=== PATIENT | female | born 1945 | race Caucasian/White ===

== ENCOUNTER 2019-07-09 10:31 | Outpatient (RCR) | payer MEDICARE, SELFPAY ==
[2019-04-28 12:58] LABS: INR 2.7; Prothrombin Time 27.8 Seconds (11.1-14.7)
[2019-05-26 11:06] LABS: INR 2.8; Prothrombin Time 28.9 Seconds (11.1-14.7)
[2019-06-25 11:28] LABS: INR 3.2; Prothrombin Time 32.5 Seconds (11.1-14.7)
[2019-07-09 10:55] LABS: INR 2.1; Prothrombin Time 23.5 Seconds (11.1-14.7)
== END 2019-07-27 23:59 | disposition home or self-care (01) ==
LOC: ANHLAB 10:31
PROVIDERS: PCP Family Medicine; Visit Provider Internal Medicine Cardiovascular Disease
DX: Z51.81 Encounter for therapeutic drug level monitoring (principal); I48.0 Paroxysmal atrial fibrillation; Z79.01 Long term (current) use of anticoagulants
CPT/HCPCS: 36415; 85610

== ENCOUNTER 2019-10-28 10:47 | Outpatient (RCR) | payer MEDICARE, SELFPAY ==
[2019-08-11 10:48] LABS: INR 2.5; Prothrombin Time 26.4 Seconds (11.1-14.7)
[2019-10-28 11:34] LABS: INR 2.6; Prothrombin Time 27.4 Seconds (11.1-14.7)
== END 2019-11-09 23:59 | disposition home or self-care (01) ==
LOC: ANHLAB 10:47
PROVIDERS: PCP Family Medicine; Visit Provider Internal Medicine Cardiovascular Disease
DX: Z51.81 Encounter for therapeutic drug level monitoring (principal); I48.0 Paroxysmal atrial fibrillation; Z79.01 Long term (current) use of anticoagulants
CPT/HCPCS: 36415; 85610

== ENCOUNTER 2020-02-10 10:54 | Outpatient (RCR) | payer MEDICARE, SELFPAY ==
[2019-12-07 11:46] LABS: INR 2.7; Prothrombin Time 28.2 Seconds (11.1-14.7)
[2020-01-11 11:45] LABS: INR 3.1; Prothrombin Time 31.1 Seconds (11.1-14.7)
[2020-02-10 11:35] LABS: INR 3.1; Prothrombin Time 31.2 Seconds (11.1-14.7)
== END 2020-03-06 23:59 | disposition home or self-care (01) ==
LOC: ANHLAB 10:54
PROVIDERS: PCP Family Medicine; Visit Provider Internal Medicine Cardiovascular Disease
DX: Z51.81 Encounter for therapeutic drug level monitoring (principal); I48.0 Paroxysmal atrial fibrillation; Z79.01 Long term (current) use of anticoagulants
CPT/HCPCS: 36415; 85610

== ENCOUNTER 2020-03-15 09:10 | Outpatient (CLI) | payer MEDICARE, SELFPAY ==
[2020-03-15 09:50] LABS: Basophils Absolute Auto 0.1 K/mm3 (0.0-0.1); Basophils Percent Auto 1.2 % (0.2-1.2); Eosinophils Absolute Auto 0.2 K/mm3 (0-0.3); Eosinophils Percent Auto 2.7 % (0-4.4); Hematocrit 39.4 % (37.0-47.0); Hemoglobin 12.4 g/dL (12.0-15.0); Immature Granulocyte Absolute 0.02 K/mm3 (0.00-0.031); Immature Granulocyte Percent A 0.3 % (0-0.5); Lymphocytes Absolute Auto 1.03 K/mm3 (0.9-3.2); Lymphocytes Percent Auto 17.2 % (18.3-44.2); Mean Corpuscular HGB Conc 31.5 g/dl (32-36); Mean Corpuscular Hemoglobin 30.1 pg (26-34); Mean Corpuscular Volume 95.6 fl (80-100); Mean Platelet Volume 10.2 fl (7.4-10.4); Monocytes Absolute Auto 0.7 K/mm3 (0.1-0.6); Monocytes Percent Auto 11.2 % (2.6-8.5); Neutrophils Percent Auto 67.4 % (45.5-73.1); Platelet Count Result 301 k/mm3 (150-375); Red Blood Count 4.12 M/mm3 (4.2-5.4)
[2020-03-15 09:54] LABS: Add Urine Microscopic? YES; Appearance Urine Clear (Clear); Bilirubin Urine Negative (Negative); Blood Urine 1+ (Negative); Color Urine Yellow (Yellow); Glucose Urine UA Negative (Negative); Ketones Urine Negative (Negative); Leukocyte Esterase Ur Negative LEU/UL (NEGATIVE); Mucus Urine Rare /lpf; Nitrate Urine Negative (Negative); Protein Urine 1+ mg/dL (Negative); Specific Grav Ur 1.016 (1.001-1.035); Squamous Epithelial Cell Urine Rare /hpf (Few); Transitional Epi Cells Urine Rare /hpf (None Seen); Urobilinogen Urine Negative mg/dL (<2.0); WBC Urine 0-3 /hpf (0-3)
[2020-03-15 10:04] LABS: Alanine Aminotransferase 20 U/L (4-35); Albumin Level 3.9 g/dL (3.5-5.1); Alkaline Phosphatase 111 U/L (38-126); Anion Gap 6 mmol/L (8-16); Aspartate Amino Transferase 27 U/L (14-36); Blood Urea Nitrogen 11 mg/dL (7-17); Carbon Dioxide 29 mmol/L (22-30); Chloride 108 mmol/L (98-107); Cholesterol 137 mg/dL (0-200); Estimated Glomerular Filt Rate > 60; Glucose 102 mg/dL (65-105); HDL Direct 40 mg/dL; Potassium 4.3 mmol/L (3.4-5.0); Sodium 143 mmol/L (137-145); Triglycerides 139 mg/dL (<150)
[2020-03-15 10:14] LABS: LDL Cholesterol Direct 62 mg/dL
== END 2020-03-15 09:11 | disposition home or self-care (01) ==
PROVIDERS: PCP Family Medicine; Visit Provider Physician Assistant
DX: E78.5 Hyperlipidemia, unspecified (principal); R26.89 Other abnormalities of gait and mobility; I48.20 Chronic atrial fibrillation, unspecified; I10 Essential (primary) hypertension; I69.30 Unspecified sequelae of cerebral infarction
CPT/HCPCS: 36415; 80053; 80061; 81001; 84443; 85025; 85610

== ENCOUNTER 2020-03-29 12:56 | Outpatient (CLI) | payer MEDICARE, SELFPAY ==
--- NOTE | ~2020-03-29 | DEXA_ITS ---
Bone Density Report Name: Nikki Perez Age: 74 Sex: Female Ethnicity: White Date of : 1945 Indication: postmenopausal; Referring Provider: MARLIN CHINO Study: Bone densitometry was performed. Exam Date: March 29, 2020 Accession number: [id number] Bone Density: Region BMD T-score Z-score Classification AP Spine (L1-L4) 0.666 -3.5 -1.0 Osteoporosis Femoral Neck (Left) 0.399 -4.1 -1.9 Osteoporosis Total Hip (Left) 0.551 -3.2 -1.4 Osteoporosis Total Hip Bilateral Avg 0.568 -3.1 -1.3 Osteoporosis Femoral Neck (Right) 0.424 -3.8 -1.7 Osteoporosis Total Hip (Right) 0.585 -2.9 -1.1 Osteoporosis World Health Organization criteria for BMD impression classify patients as: Normal (T-score at or above -1.0), Osteopenia (T-score between -1.0 and -2.5), or Osteoporosis (T-score at or below -2.5). 10-year Fracture Risk: FRAX not reported because: Some T-score for Spine Total or Hip Total or Femoral Neck at or below -2.5 Clinical Information Provided by Patient: Patient maximum height was 63 Menopause Age: 49 No regular weight bearing exercise Drinks caffeinated beverages Onset of menses at age 15 Number of children 2 Impression: The patient has osteoporosis, based on the Left Femoral Neck T-score. Discussion: INCREASED RISK OF FRACTURE. BONE DENSITY IS UNDESIRABLY LOW AT ONE OR MORE SKELETAL SITES, CONSISTENT WITH POSTMENOPAUSAL OSTEOPOROSIS. This patient's lowest T-score meets the World Health Organization's (WHO) criteria for osteoporosis at one or more sites (T-score -2.5 or below). In untreated patients, the risk of osteoporotic fracture increases approximately two-fold for each 1.0 SD decrease in T-score. Low bone density is not the only risk factor for fracture; also consider factors such as patient's age, frailty or poor health, risk of falling, risk of injury, previous osteoporotic fracture, family history of osteoporosis, cigarette smoking, low body weight, etc. Not everyone with low bone mineral density has osteoporosis; osteomalacia and other metabolic bone disorders should also be considered. Patients who have osteoporosis should be evaluated for specific diseases and conditions (secondary causes) that may cause or contribute to bone loss. The [place] Association of Clinical Endocrinologists (AACE) and National Osteoporosis Foundation (NOF) recommend pharmacologic intervention for all postmenopausal women whose T-score is in this range. The patient should follow a healthful lifestyle (good nutrition with adequate calcium and vitamin D, and appropriate weight-bearing exercise). Follow-Up: Consider a repeat BMD and Vertebral Fracture Assessment (VFA) exam in 2 years or sooner if medically necessary, to reassess this patient's status. Reported by: VIKY on 03/29/2020 1:22:00 PM.
== END 2020-03-29 12:57 | disposition home or self-care (01) ==
LOC: ANHIMG 12:58
PROVIDERS: PCP Family Medicine; Visit Provider Physician Assistant
DX: Z78.0 Asymptomatic menopausal state (principal); M81.0 Age-related osteoporosis without current pathological fracture
CPT/HCPCS: 77080

== ENCOUNTER 2020-05-10 11:51 | Outpatient (RCR) | payer MEDICARE, SELFPAY ==
[2020-03-15 10:03] LABS: INR 2.6; Prothrombin Time 27.2 Seconds (11.1-14.7)
[2020-04-15 11:27] LABS: INR 2.9; Prothrombin Time 29.5 Seconds (11.1-14.7)
[2020-05-10 12:47] LABS: INR 2.7; Prothrombin Time 29.1 Seconds (11.1-14.7)
== END 2020-06-13 23:59 | disposition home or self-care (01) ==
LOC: ANHLAB 11:51
PROVIDERS: PCP Family Medicine; Visit Provider Internal Medicine Cardiovascular Disease
DX: Z51.81 Encounter for therapeutic drug level monitoring (principal); I48.0 Paroxysmal atrial fibrillation; Z79.01 Long term (current) use of anticoagulants
CPT/HCPCS: 36415; 85610

== ENCOUNTER 2020-08-25 10:27 | Outpatient (RCR) | payer MEDICARE, SELFPAY ==
[2020-06-14 11:05] LABS: INR 2.7; Prothrombin Time 29.2 Seconds (11.1-14.7)
[2020-07-19 11:11] LABS: INR 3.2; Prothrombin Time 33.3 Seconds (11.1-14.7)
[2020-08-16 11:04] LABS: INR 3.8; Prothrombin Time 37.8 Seconds (11.1-14.7)
[2020-08-25 10:59] LABS: INR 3.1; Prothrombin Time 32.5 Seconds (11.1-14.7)
== END 2020-09-12 23:59 | disposition home or self-care (01) ==
LOC: ANHLAB 10:27
PROVIDERS: PCP Family Medicine; Visit Provider Internal Medicine Cardiovascular Disease
DX: Z51.81 Encounter for therapeutic drug level monitoring (principal); I48.0 Paroxysmal atrial fibrillation; I63.111 Cerebral infarction due to embolism of right vertebral artery; Z79.01 Long term (current) use of anticoagulants
CPT/HCPCS: 36415; 85610

== ENCOUNTER 2020-11-15 09:14 | Outpatient (CLI) | payer MEDICARE, SELFPAY ==
[2020-11-15 09:52] LABS: Hematocrit 39.7 % (37.0-47.0); Hemoglobin 12.4 g/dL (12.0-15.0); Mean Corpuscular HGB Conc 31.2 g/dl (32-36); Mean Corpuscular Hemoglobin 28.6 pg (26-34); Mean Corpuscular Volume 91.5 fl (80-100); Mean Platelet Volume 10.1 fl (7.4-10.4); Platelet Count Result 317 k/mm3 (150-375); Red Blood Count 4.34 M/mm3 (4.2-5.4); Red Cell Distribution Width 15.8 % (11.5-14.5); White Blood Count 6.9 K/mm3 (4.5-10.0)
[2020-11-15 09:56] LABS: Add Urine Microscopic? YES; Appearance Urine Clear (Clear); Bilirubin Urine Negative (Negative); Blood Urine 1+ (Negative); Color Urine Yellow (Yellow); Glucose Urine UA Negative (Negative); Ketones Urine Negative (Negative); Leukocyte Esterase Ur Negative LEU/UL (NEGATIVE); Mucus Urine Rare /lpf; Nitrate Urine Negative (Negative); Protein Urine Negative (Negative); RBC Urine 0-2 /hpf (0-2); Specific Grav Ur 1.013 (1.001-1.035); Squamous Epithelial Cell Urine Rare /hpf (Few); Urobilinogen Urine Negative mg/dL (<2.0); WBC Urine 0-3 /hpf (0-3)
[2020-11-15 10:04] LABS: Alanine Aminotransferase 19 U/L (4-35); Albumin Level 4.1 g/dL (3.5-5.1); Alkaline Phosphatase 119 U/L (38-126); Anion Gap 9 mmol/L (8-16); Aspartate Amino Transferase 31 U/L (14-36); Bilirubin,Total 1.2 mg/dL (0.2-1.3); Blood Urea Nitrogen 15 mg/dL (7-17); Calcium 9.3 mg/dL (8.4-10.2); Carbon Dioxide 26 mmol/L (22-30); Chloride 109 mmol/L (98-107); Cholesterol 139 mg/dL (0-200); Estimated Glomerular Filt Rate > 60; Glucose 105 mg/dL (65-105); HDL Direct 44 mg/dL; Potassium 4.3 mmol/L (3.4-5.0); Sodium 144 mmol/L (137-145); Triglycerides 126 mg/dL (<150)
[2020-11-15 10:16] LABS: LDL Cholesterol Direct 58 mg/dL
[2020-11-15 10:34] LABS: Thyroid Stimulating Hormone 0.816 uIU/mL (0.465-4.680)
== END 2020-11-15 09:15 | disposition home or self-care (01) ==
LOC: ANHLAB 09:22
PROVIDERS: PCP Family Medicine; Visit Provider Family Medicine
DX: E78.5 Hyperlipidemia, unspecified (principal); R26.89 Other abnormalities of gait and mobility; I10 Essential (primary) hypertension; Z00.00 Encounter for general adult medical examination without abnormal findings
CPT/HCPCS: 36415; 80053; 80061; 81001; 84443; 85027

== ENCOUNTER 2020-12-19 10:29 | Outpatient (RCR) | payer MEDICARE, SELFPAY ==
[2020-09-20 11:44] LABS: INR 2.8; Prothrombin Time 30.1 Seconds (11.1-14.7)
[2020-10-18 11:36] LABS: INR 3.1; Prothrombin Time 32.3 Seconds (11.1-14.7)
[2020-11-15 10:06] LABS: INR 2.5; Prothrombin Time 27.5 Seconds (11.1-14.7)
[2020-12-19 10:55] LABS: INR 2.8; Prothrombin Time 30.3 Seconds (11.1-14.7)
== END 2020-12-19 23:59 | disposition home or self-care (01) ==
LOC: ANHLAB 10:29
PROVIDERS: PCP Family Medicine; Visit Provider Internal Medicine Cardiovascular Disease
DX: Z51.81 Encounter for therapeutic drug level monitoring (principal); I48.0 Paroxysmal atrial fibrillation; I63.111 Cerebral infarction due to embolism of right vertebral artery; Z79.01 Long term (current) use of anticoagulants
CPT/HCPCS: 36415; 85610

== ENCOUNTER 2021-04-10 11:11 | Outpatient (RCR) | payer MEDICARE, SELFPAY ==
[2021-01-17 11:14] LABS: INR 2.9; Prothrombin Time 29.3 Seconds (11.1-14.7)
[2021-02-17 11:33] LABS: Prothrombin Time 30.6 Seconds (11.1-14.7)
[2021-03-20 12:01] LABS: INR 3.6; Prothrombin Time 34.5 Seconds (11.1-14.7)
[2021-04-10 11:40] LABS: INR 3.5; Prothrombin Time 34.2 Seconds (11.1-14.7)
== END 2021-04-17 23:59 | disposition home or self-care (01) ==
LOC: ANHLAB 11:11
PROVIDERS: PCP Family Medicine; Visit Provider Internal Medicine Cardiovascular Disease
DX: Z51.81 Encounter for therapeutic drug level monitoring (principal); I48.0 Paroxysmal atrial fibrillation; I63.111 Cerebral infarction due to embolism of right vertebral artery; Z79.01 Long term (current) use of anticoagulants
CPT/HCPCS: 36415; 85610

== ENCOUNTER 2021-07-17 10:24 | Outpatient (RCR) | payer MEDICARE, SELFPAY ==
[2021-05-01 11:11] LABS: INR 3.5; Prothrombin Time 34.2 Seconds (11.1-14.7)
[2021-05-09 12:04] LABS: INR 2.8; Prothrombin Time 28.7 Seconds (11.1-14.7)
[2021-06-06 11:11] LABS: INR 3.8; Prothrombin Time 36.2 Seconds (11.1-14.7)
[2021-07-17 11:22] LABS: INR 2.3; Prothrombin Time 24.6 Seconds (11.1-14.7)
== END 2021-07-30 23:59 | disposition home or self-care (01) ==
LOC: ANHLAB 10:24
PROVIDERS: PCP Family Medicine; Visit Provider Internal Medicine Cardiovascular Disease
DX: Z51.81 Encounter for therapeutic drug level monitoring (principal); I48.91 Unspecified atrial fibrillation; Z79.01 Long term (current) use of anticoagulants
CPT/HCPCS: 36415; 85610

== ENCOUNTER 2021-11-07 11:25 | Outpatient (RCR) | payer MEDICARE, SELFPAY ==
[2021-08-14 11:14] LABS: Prothrombin Time 21.6 Seconds (11.1-14.7)
[2021-09-06 11:31] LABS: INR 2.8; Prothrombin Time 28.8 Seconds (11.1-14.7)
[2021-10-16 11:13] LABS: INR 2.6; Prothrombin Time 26.9 Seconds (11.1-14.7)
[2021-11-07 12:01] LABS: INR 2.4; Prothrombin Time 24.9 Seconds (11.1-14.7)
== END 2021-11-12 23:59 | disposition home or self-care (01) ==
LOC: ANHLAB 11:25
PROVIDERS: PCP Family Medicine; Visit Provider Internal Medicine Cardiovascular Disease
DX: Z51.81 Encounter for therapeutic drug level monitoring (principal); I48.91 Unspecified atrial fibrillation; Z79.01 Long term (current) use of anticoagulants
CPT/HCPCS: 36415; 85610

== ENCOUNTER 2021-12-19 09:29 | Outpatient (CLI) | payer MEDICARE, SELFPAY ==
[2021-12-19 09:55] LABS: Basophils Absolute Auto 0.1 K/mm3 (0.0-0.1); Basophils Percent Auto 0.8 % (0.2-1.2); Eosinophils Absolute Auto 0.1 K/mm3 (0-0.3); Eosinophils Percent Auto 1.7 % (0-4.4); Hematocrit 41.5 % (37.0-47.0); Hemoglobin 12.9 g/dL (12.0-15.0); Immature Granulocyte Absolute 0.02 K/mm3 (0.00-0.031); Immature Granulocyte Percent A 0.3 % (0-0.5); Lymphocytes Absolute Auto 1.43 K/mm3 (0.9-3.2); Lymphocytes Percent Auto 19.9 % (18.3-44.2); Mean Corpuscular HGB Conc 31.1 g/dl (32-36); Mean Corpuscular Volume 93.3 fl (80-100); Mean Platelet Volume 10.2 fl (7.4-10.4); Monocytes Absolute Auto 0.8 K/mm3 (0.1-0.6); Monocytes Percent Auto 10.5 % (2.6-8.5); Neutrophils Absolute Auto 4.8 K/mm3 (1.3-6.7); Neutrophils Percent Auto 66.8 % (45.5-73.1); Platelet Count Result 294 k/mm3 (150-375); Red Blood Count 4.45 M/mm3 (4.2-5.4); Red Cell Distribution Width 15.7 % (11.5-14.5); White Blood Count 7.2 K/mm3 (4.5-10.0)
[2021-12-19 10:05] LABS: Appearance Urine Slightly Cloudy (Clear); Bilirubin Urine Negative (Negative); Blood Urine 1+ (Negative); Color Urine Yellow (Yellow); Glucose Urine UA Negative (Negative); Ketones Urine Negative (Negative); Leukocyte Esterase Ur Trace LEU/UL (NEGATIVE); Nitrate Urine Negative (Negative); Protein Urine Negative (Negative); Urobilinogen Urine 0.2 mg/dL (<2.0); pH Urine 5.5 (5.0-9.0)
[2021-12-19 10:08] LABS: Add Urine Microscopic? YES
[2021-12-19 10:09] LABS: Mucus Urine Few /lpf; Squamous Epithelial Cell Urine Few /hpf (Few); WBC Urine 0-3 /hpf (0-3)
[2021-12-19 10:13] LABS: Alanine Aminotransferase 23 U/L (6-35); Albumin Level 4.1 g/dL (3.5-5.1); Alkaline Phosphatase 124 U/L (38-126); Anion Gap 7 mmol/L (8-16); Aspartate Amino Transferase 33 U/L (14-36); Bilirubin,Total 1.2 mg/dL (0.2-1.3); Blood Urea Nitrogen 15 mg/dL (7-17); Calcium 9.1 mg/dL (8.4-10.2); Carbon Dioxide 26 mmol/L (22-30); Chloride 108 mmol/L (98-107); Cholesterol 164 mg/dL (0-200); Estimated Glomerular Filt Rate > 60; Glucose 110 mg/dL (65-110); HDL Direct 45 mg/dL; Potassium 4.5 mmol/L (3.4-5.0); Sodium 141 mmol/L (137-145); Triglycerides 172 mg/dL (<150)
[2021-12-19 10:25] LABS: LDL Cholesterol Direct 67 mg/dL
== END 2021-12-19 09:30 | disposition home or self-care (01) ==
LOC: ANHLAB 09:31
PROVIDERS: PCP Family Medicine; Visit Provider Nurse Practitioner Family
DX: I48.20 Chronic atrial fibrillation, unspecified (principal); I10 Essential (primary) hypertension; E78.5 Hyperlipidemia, unspecified; Z00.00 Encounter for general adult medical examination without abnormal findings; E03.9 Hypothyroidism, unspecified
CPT/HCPCS: 36415; 80053; 80061; 81001; 84443; 85025

== ENCOUNTER 2022-03-14 10:35 | Outpatient (RCR) | payer MEDICARE, SELFPAY ==
[2022-01-10 12:22] LABS: Prothrombin Time 22.2 Seconds (11.1-14.7)
[2022-02-12 11:33] LABS: INR 2.3; Prothrombin Time 24.2 Seconds (11.1-14.7)
[2022-03-14 11:29] LABS: INR 1.9; Prothrombin Time 21.2 Seconds (11.1-14.7)
[2022-04-09 11:50] LABS: INR 2.3; Prothrombin Time 24.4 Seconds (11.1-14.7)
== END 2022-04-10 23:59 | disposition home or self-care (01) ==
LOC: ANHLAB 10:35
PROVIDERS: PCP Family Medicine; Visit Provider Internal Medicine Cardiovascular Disease
DX: Z51.81 Encounter for therapeutic drug level monitoring (principal); I48.91 Unspecified atrial fibrillation; Z79.01 Long term (current) use of anticoagulants
CPT/HCPCS: 36415; 85610

== ENCOUNTER 2022-07-16 10:29 | Outpatient (RCR) | payer MEDICARE, SELFPAY ==
[2022-05-16 11:22] LABS: INR 2.5; Prothrombin Time 26.5 Seconds (11.1-14.7)
[2022-06-21 11:13] LABS: INR 2.4; Prothrombin Time 25.4 Seconds (11.1-14.7)
[2022-07-16 11:10] LABS: INR 2.4; Prothrombin Time 25.6 Seconds (11.1-14.7)
== END 2022-08-14 23:59 | disposition home or self-care (01) ==
LOC: ANHLAB 10:29
PROVIDERS: PCP Family Medicine; Visit Provider Internal Medicine Cardiovascular Disease
DX: Z51.81 Encounter for therapeutic drug level monitoring (principal); Z79.01 Long term (current) use of anticoagulants
CPT/HCPCS: 36415; 80053; 85610

== ENCOUNTER 2022-07-16 10:31 | Outpatient (CLI) | payer MEDICARE, SELFPAY ==
[2022-07-16 11:11] LABS: Alanine Aminotransferase 24 U/L (6-35); Anion Gap 8 mmol/L (8-16); Aspartate Amino Transferase 28 U/L (14-36); Bilirubin,Total 1.1 mg/dL (0.2-1.3); Blood Urea Nitrogen 12 mg/dL (7-17); Calcium 8.6 mg/dL (8.4-10.2); Carbon Dioxide 24 mmol/L (22-30); Chloride 105 mmol/L (98-107); Estimated Glomerular Filt Rate > 60; Glucose 119 mg/dL (65-110); Potassium 4.3 mmol/L (3.4-5.0); Sodium 137 mmol/L (137-145)
[2022-07-16 11:12] LABS: Alkaline Phosphatase 111 U/L (38-126)
== END 2022-07-16 10:32 | disposition home or self-care (01) ==
PROVIDERS: PCP Family Medicine; Visit Provider Physician Assistant
DX: I10 Essential (primary) hypertension (principal); I48.20 Chronic atrial fibrillation, unspecified
CPT/HCPCS: 36415; 80053

== ENCOUNTER 2022-11-08 09:23 | Outpatient (RCR) | payer MEDICARE, SELFPAY ==
[2022-08-20 10:49] LABS: INR 2.7; Prothrombin Time 28.1 Seconds (11.1-14.7)
[2022-09-10 13:08] LABS: INR 2.6
[2022-10-09 10:54] LABS: INR 2.9; Prothrombin Time 29.2 Seconds (11.1-14.7)
[2022-11-08 10:12] LABS: INR 2.8
== END 2022-11-18 23:59 | disposition home or self-care (01) ==
LOC: ANHLAB 09:23
PROVIDERS: PCP Family Medicine; Visit Provider Internal Medicine Cardiovascular Disease
DX: Z51.81 Encounter for therapeutic drug level monitoring (principal); Z79.01 Long term (current) use of anticoagulants
CPT/HCPCS: 36415; 80053; 80061; 81001; 84443; 85027; 85610

== ENCOUNTER 2022-11-08 09:27 | Outpatient (CLI) | payer MEDICARE, SELFPAY ==
[2022-11-08 09:57] LABS: Hematocrit 39.5 % (37.0-47.0); Hemoglobin 12.3 g/dL (12.0-15.0); Mean Corpuscular HGB Conc 31.1 g/dl (32-36); Mean Corpuscular Hemoglobin 29.4 pg (26-34); Mean Corpuscular Volume 94.5 fl (80-100); Mean Platelet Volume 10.4 fl (7.4-10.4); Platelet Count Result 291 k/mm3 (150-375); Red Blood Count 4.18 M/mm3 (4.2-5.4); White Blood Count 6.7 K/mm3 (4.5-10.0)
[2022-11-08 10:07] LABS: Appearance Urine Slightly Cloudy (Clear); Bilirubin Urine Negative (Negative); Blood Urine Negative (Negative); Color Urine Yellow (Yellow); Glucose Urine UA Negative (Negative); Ketones Urine Negative (Negative); Leukocyte Esterase Ur Trace LEU/UL (NEGATIVE); Nitrate Urine Negative (Negative); Protein Urine 1+ mg/dL (Negative); Specific Grav Ur 1.015 (1.001-1.035); Urobilinogen Urine 0.2 mg/dL (<2.0)
[2022-11-08 10:07] LABS: Alanine Aminotransferase 21 U/L (6-35); Alkaline Phosphatase 111 U/L (38-126); Anion Gap 7 mmol/L (8-16); Aspartate Amino Transferase 25 U/L (14-36); Blood Urea Nitrogen 14 mg/dL (7-17); Calcium 8.7 mg/dL (8.4-10.2); Carbon Dioxide 29 mmol/L (22-30); Chloride 109 mmol/L (98-107); Cholesterol 123 mg/dL (0-200); Estimated Glomerular Filt Rate 54; Glucose 95 mg/dL (65-110); HDL Direct 45 mg/dL; Potassium 4.1 mmol/L (3.4-5.0); Sodium 145 mmol/L (137-145); Triglycerides 136 mg/dL (<150)
[2022-11-08 10:11] LABS: Bacteria Urine None Seen /hpf; Non Pathogenic Casts 0-2; Squamous Epithelial Cell Urine Moderate /hpf (Few)
[2022-11-08 10:13] LABS: Add Urine Microscopic? YES
[2022-11-08 10:18] LABS: LDL Cholesterol Direct 46 mg/dL
== END 2022-11-08 09:28 | disposition home or self-care (01) ==
LOC: ANHLAB 09:29
PROVIDERS: PCP Family Medicine; Visit Provider Physician Assistant
DX: E78.5 Hyperlipidemia, unspecified (principal); I10 Essential (primary) hypertension; I48.20 Chronic atrial fibrillation, unspecified
CPT/HCPCS: 36415; 80053; 80061; 81001; 84443; 85027

== ENCOUNTER 2023-02-08 10:40 | Outpatient (RCR) | payer MEDICARE, SELFPAY ==
[2022-12-06 10:48] LABS: INR 2.1; Prothrombin Time 25.5 Seconds (11.1-14.7)
[2023-01-14 10:22] LABS: INR 2.8; Prothrombin Time 31.7 Seconds (11.1-14.7)
[2023-02-08 12:45] LABS: INR 2.1; Prothrombin Time 25.3 Seconds (11.1-14.7)
== END 2023-03-06 23:59 | disposition home or self-care (01) ==
LOC: ANHLAB 10:40
PROVIDERS: PCP Family Medicine; Visit Provider Internal Medicine Cardiovascular Disease
DX: Z51.81 Encounter for therapeutic drug level monitoring (principal); Z79.01 Long term (current) use of anticoagulants
CPT/HCPCS: 36415; 85610

== ENCOUNTER 2023-03-11 10:38 | Outpatient (CLI) | payer MEDICARE, SELFPAY ==
[2023-03-11 11:30] LABS: INR 2.3
== END 2023-03-11 10:39 | disposition home or self-care (01) ==
PROVIDERS: PCP Family Medicine; Visit Provider Internal Medicine Cardiovascular Disease
DX: I48.91 Unspecified atrial fibrillation (principal); Z79.01 Long term (current) use of anticoagulants
CPT/HCPCS: 36415; 85610

== ENCOUNTER 2023-05-09 09:44 | Outpatient (CLI) | payer MEDICARE, SELFPAY ==
[2023-05-09 11:14] LABS: Alanine Aminotransferase 19 U/L (6-35); Alkaline Phosphatase 96 U/L (38-126); Anion Gap 10 mmol/L (8-16); Aspartate Amino Transferase 24 U/L (14-36); Bilirubin,Total 1.1 mg/dL (0.2-1.3); Blood Urea Nitrogen 15 mg/dL (7-17); Calcium 9.1 mg/dL (8.4-10.2); Carbon Dioxide 25 mmol/L (22-30); Chloride 111 mmol/L (98-107); Estimated Glomerular Filt Rate > 60; Glucose 98 mg/dL (65-110); Potassium 4.1 mmol/L (3.4-5.0); Sodium 146 mmol/L (137-145)
== END 2023-05-09 09:45 | disposition home or self-care (01) ==
PROVIDERS: PCP Family Medicine; Visit Provider Physician Assistant
DX: I10 Essential (primary) hypertension (principal)
CPT/HCPCS: 36415; 80053

== ENCOUNTER 2023-06-12 10:32 | Outpatient (RCR) | payer MEDICARE, SELFPAY ==
[2023-04-10 11:36] LABS: INR 2.8; Prothrombin Time 31.8 Seconds (11.1-14.7)
[2023-05-09 10:58] LABS: INR 2.5; Prothrombin Time 29.2 Seconds (11.1-14.7)
[2023-06-12 11:45] LABS: INR 2.4; Prothrombin Time 27.8 Seconds (11.1-14.7)
== END 2023-07-09 23:59 | disposition home or self-care (01) ==
LOC: ANHLAB 10:32
PROVIDERS: PCP Family Medicine; Visit Provider Internal Medicine Cardiovascular Disease
DX: Z51.81 Encounter for therapeutic drug level monitoring (principal); I48.91 Unspecified atrial fibrillation; Z79.01 Long term (current) use of anticoagulants
CPT/HCPCS: 36415; 80053; 85610

== ENCOUNTER 2023-10-04 10:19 | Outpatient (RCR) | payer MEDICARE, SELFPAY ==
[2023-07-16 11:17] LABS: INR 2.7; Prothrombin Time 31.1 Seconds (11.1-14.7)
[2023-08-13 11:00] LABS: INR 3.3; Prothrombin Time 36.4 Seconds (11.1-14.7)
[2023-09-02 10:41] LABS: INR 3.1; Prothrombin Time 33.9 Seconds (11.1-14.7)
[2023-10-04 11:58] LABS: INR 2.4; Prothrombin Time 28.2 Seconds (11.1-14.7)
== END 2023-10-14 23:59 | disposition home or self-care (01) ==
LOC: ANHLAB 10:19
PROVIDERS: PCP Family Medicine; Visit Provider Internal Medicine Cardiovascular Disease
DX: Z51.81 Encounter for therapeutic drug level monitoring (principal); I48.91 Unspecified atrial fibrillation; Z79.01 Long term (current) use of anticoagulants
CPT/HCPCS: 36415; 85610

== ENCOUNTER 2023-11-06 09:44 | Outpatient (CLI) | payer MEDICARE, SELFPAY ==
[2023-11-06 11:20] LABS: Hematocrit 43.7 % (37.0-47.0); Hemoglobin 13.3 g/dL (12.0-15.0); Mean Corpuscular HGB Conc 30.4 g/dl (32-36); Mean Corpuscular Hemoglobin 29.5 pg (26-34); Mean Corpuscular Volume 96.9 fl (80-100); Mean Platelet Volume 10.6 fl (7.4-10.4); Platelet Count Result 313 k/mm3 (150-375); Red Blood Count 4.51 M/mm3 (4.2-5.4); Red Cell Distribution Width 14.6 % (11.5-14.5); White Blood Count 6.2 K/mm3 (4.5-10.0)
[2023-11-06 11:22] LABS: Alanine Aminotransferase 23 U/L (6-35); Albumin Level 4.4 g/dL (3.5-5.1); Alkaline Phosphatase 101 U/L (38-126); Anion Gap 9 mmol/L (4-12); Aspartate Amino Transferase 28 U/L (14-36); Bilirubin,Total 1.5 mg/dL (0.2-1.3); Blood Urea Nitrogen 17 mg/dL (7-17); Calcium 9.4 mg/dL (8.4-10.2); Carbon Dioxide 25 mmol/L (22-30); Chloride 109 mmol/L (98-107); Cholesterol 142 mg/dL (0-200); Estimated Glomerular Filt Rate > 60; Glucose 104 mg/dL (65-110); HDL Direct 50 mg/dL; Sodium 143 mmol/L (137-145); Triglycerides 157 mg/dL (<150)
[2023-11-06 11:25] LABS: INR 2.8; Prothrombin Time 31.9 Seconds (11.1-14.7)
[2023-11-06 11:33] LABS: LDL Cholesterol Direct 64 mg/dL
[2023-11-06 11:42] LABS: Appearance Urine Clear (Clear); Bacteria Urine None Seen /hpf; Bilirubin Urine Negative (Negative); Blood Urine Negative (Negative); Color Urine Yellow (Yellow); Glucose Urine UA Negative (Negative); Ketones Urine Negative (Negative); Leukocyte Esterase Ur Trace LEU/UL (Negative); Nitrate Urine Negative (Negative); Non Pathogenic Casts 0-2; Protein Urine Negative (Negative); RBC Urine 0-2 /hpf (0-2); Specific Grav Ur 1.006 (1.001-1.035); Squamous Epithelial Cell Urine None Seen /hpf (Few); Urobilinogen Urine 0.2 mg/dL (<2.0); WBC Urine 0-5 /hpf (0-3)
[2023-11-06 11:48] LABS: Add Urine Microscopic? YES
[2023-11-06 11:52] LABS: Thyroid Stimulating Hormone 0.809 uIU/mL (0.465-4.680)
== END 2023-11-06 09:45 | disposition home or self-care (01) ==
LOC: ANHLAB 09:47
PROVIDERS: PCP Family Medicine; Visit Provider Physician Assistant
DX: E78.5 Hyperlipidemia, unspecified (principal); I10 Essential (primary) hypertension; I48.20 Chronic atrial fibrillation, unspecified; R26.89 Other abnormalities of gait and mobility
CPT/HCPCS: 36415; 80053; 80061; 81001; 84443; 85027; 85610

== ENCOUNTER 2024-01-10 10:21 | Outpatient (RCR) | payer MEDICARE, SELFPAY ==
[2023-12-05 11:00] LABS: INR 2.4; Prothrombin Time 26.2 Seconds (11.1-14.7)
[2024-01-10 10:54] LABS: INR 3.1; Prothrombin Time 32.5 Seconds (11.1-14.7)
== END 2024-02-04 23:59 | disposition home or self-care (01) ==
LOC: ANHLAB 10:21
PROVIDERS: PCP Family Medicine; Visit Provider Internal Medicine Cardiovascular Disease
DX: Z51.81 Encounter for therapeutic drug level monitoring (principal); I48.91 Unspecified atrial fibrillation; Z79.01 Long term (current) use of anticoagulants
CPT/HCPCS: 36415; 85610

== ENCOUNTER 2024-04-06 11:35 | Outpatient (RCR) | payer MEDICARE, SELFPAY ==
[2024-02-12 11:15] LABS: INR 3.5; Prothrombin Time 35.2 Seconds (11.1-14.7)
[2024-03-02 14:36] LABS: INR 2.3; Prothrombin Time 26.3 Seconds (11.1-14.7)
[2024-04-06 12:17] LABS: INR 2.4; Prothrombin Time 26.7 Seconds (11.1-14.7)
== END 2024-05-12 23:59 | disposition home or self-care (01) ==
LOC: ANHLAB 11:35
PROVIDERS: PCP Family Medicine; Visit Provider Internal Medicine Cardiovascular Disease
DX: Z79.01 Long term (current) use of anticoagulants (principal); Z51.81 Encounter for therapeutic drug level monitoring
CPT/HCPCS: 36415; 85610

== ENCOUNTER 2024-05-19 09:56 | Outpatient (CLI) | payer MEDICARE, SELFPAY ==
[2024-05-19 10:31] LABS: Alanine Aminotransferase 21 U/L (6-35); Albumin Level 4.1 g/dL (3.5-5.1); Alkaline Phosphatase 108 U/L (38-126); Anion Gap 7 mmol/L (4-12); Aspartate Amino Transferase 27 U/L (14-36); Bilirubin,Total 1.3 mg/dL (0.2-1.3); Blood Urea Nitrogen 21 mg/dL (7-17); Calcium 9.1 mg/dL (8.4-10.2); Carbon Dioxide 25 mmol/L (22-30); Chloride 110 mmol/L (98-107); Estimated Glomerular Filt Rate 60; Glucose 102 mg/dL (65-110); Potassium 4.1 mmol/L (3.4-5.0); Sodium 142 mmol/L (137-145)
== END 2024-05-19 09:57 | disposition home or self-care (01) ==
PROVIDERS: PCP Family Medicine; Visit Provider Physician Assistant
DX: E78.5 Hyperlipidemia, unspecified (principal); I10 Essential (primary) hypertension
CPT/HCPCS: 36415; 80053

== ENCOUNTER 2024-07-30 10:53 | Outpatient (RCR) | payer MEDICARE, SELFPAY ==
[2024-05-19 10:33] LABS: INR 2.9; Prothrombin Time 30.5 Seconds (11.1-14.7)
[2024-06-09 11:32] LABS: INR 3.3
[2024-07-09 11:47] LABS: INR 2.7
[2024-07-30 11:34] LABS: INR 2.7; Prothrombin Time 29.1 Seconds (11.1-14.7)
== END 2024-08-17 23:59 | disposition home or self-care (01) ==
LOC: ANHLAB 10:53
PROVIDERS: PCP Family Medicine; Visit Provider Internal Medicine Cardiovascular Disease
DX: Z79.01 Long term (current) use of anticoagulants (principal)
CPT/HCPCS: 36415; 80053; 85610

== ENCOUNTER 2024-11-12 10:05 | Outpatient (CLI) | payer MEDICARE, SELFPAY ==
--- OUTSIDE RECORDS SUMMARY | 2024-11-12 10:15 | XMS_ITS | Clinical Summary ---
Author Organization [facility] [place] [address] [facility] [address] [facility] [address] [place] [address] Care Team Providers Care Aviation Mechanic Name Role Phone Raúl Palacio MD Primary Care Provider Allergies No known active allergies Medications atorvastatin (LIPITOR) 40 mg tablet Take 1 tablet (40 mg total) by mouth daily 5 11/29/2018 Active metoprolol tartrate (LOPRESSOR) 50 mg immediate release tablet Take 1 tablet (50 mg total) by mouth 2 (two) times a day 180 tablet 3 07/10/2022 Active famotidine (PEPCID) 20 mg tablet Take 1 tablet (20 mg total) by mouth daily 07/12/2022 Active cetirizine (ZyrTEC) 10 mg tablet Take 1 tablet (10 mg total) by mouth daily Active losartan (COZAAR) 100 mg tabletIndications :Essential hypertension Take 1 tablet (100 mg total) by mouth daily 90 tablet 3 07/24/2022 Active amLODIPine (NORVASC) 10 mg tablet Take 1 tablet (10 mg total) by mouth daily 90 tablet 3 09/25/2022 Active furosemide (LASIX) 20 mg tabletIndications :Bilateral lower extremity edema Take 1 tablet (20 mg total) by mouth daily as needed (swelling) 90 tablet 1 01/08/2023 Active warfarin (COUMADIN) 2 mg tablet Take 1 tablet (2 mg total) by mouth daily 90 tablet 09/01/2024 Active Active Problems Problem Noted Date Diagnosed Date Hyperlipidemia LDL goal <70 03/17/2019 Chronic anticoagulation 03/17/2019 Essential hypertension 12/02/2018 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 Atrial fibrillation 11/14/2018 Encounters Date Type Department Care Team Description 09/30/2024 Anticoagulation Visit [facility] Card[facility] [address] [place] [address] Boone Stinson RN Atrial fibrillation, unspecified type (HCC) (Primary Dx) 09/01/2024 Anticoagulation Visit [facility] Cardiology [address] [place] [address] Domenica Parra RN Atrial fibrillation, unspecified type (HCC) (Primary Dx) 09/01/2024 Telephone [facility] Cardiology [address] [facility] [address] [place] [address] Boone Hooper MD from Last 3 Months Surgical History Surgery Date Site/Laterality Comments IR G TUBE PLACEMENT PERCUTANEOUS 10/16/2018 N/A Medical History Medical History Date Comments Hypertension Stroke (HCC) Cataract Family History Medical History Relation Name Comments Cancer Brother Cancer Father No Known Problems Mother Relation Name Status Comments Brother (Age 71) Father (Age 84) Mother (Age 90) Social History Tobacco Use Types Packs/Day Years Used Date Smoking Tobacco: Never Smokeless Tobacco: Never Tobacco Cessation:Counseling Given: Not Answered Alcohol Use Standard Drinks/Week Comments Never 0 (1 standard drink = 0.6 oz pur e alcohol) AUDIT-C Answer Date Recorded Frequency of Alcohol Consumption Never 12/02/2018 Average Number of Drinks Not on file 019 Frequency of Binge Drinking Not on file 11/22 Personal Safety Answer Date Recorded Getting School Help Needed Not on file 06/12 Comments Unknown Sex and Gender Information Value Date Recorded Sex Assigned at Not on file Legal Sex Female 11:21 AM CDT Gender Identity Not on file Sexual Orientation Not on file Obstetrics History Last Filed Vital Signs Vital Sign Reading Time Taken Comments Blood Pressure 120/60 11/11/2023 11:50 AM CDT Pulse 56 11/11/2023 11:27 AM CDT Temperature - - Respiratory Rate - - Oxygen Saturation 96% 11/11/2023 11:27 AM CDT Inhaled Oxygen Concentration - - Weight 62.1 kg (137 lb) 11/11/2023 11:27 AM CDT Height 160 cm (5' 3 ) 11/11/2023 11:27 AM CDT Body Mass Index 24.27 11/11/2023 11:27 AM CDT Plan of Treatment Health Maintenance Due Date Last Done Comments Depression Screening 1945 Fall Risk Assessment 1945 Osteoporosis Screening-Bone Density Scan 1945 DTaP/Tdap/Td Vaccine (1 - Tdap) 09/01/1955 Hepatitis B Screening 1962 Zoster Vaccine (1 of 2) 1994 Well Visit 65+ 2009 Pneumococcal vaccine 65+ (2 of 2 - PCV) 04/08/2019 1 Influenza Vaccine (Season Ended) 2025 04/01/20 19, 04/08/2018 Procedures Procedure Name Priority Date/Time Associated Diagnosis Comments PROTIME-INR Routine 09/30/2024 PROTIME-INR Routine 2024 from Last 3 Months Results * (ABNORMAL) Protime-INR (09/30/2024) INR 2.90(A) 0.90 - 1.10 EXTERNAL LAB Blood 09/30/2024 Historical Provider MD LAB BLOOD ORDERABLES Kaya l Result EXTERNAL LAB * (ABNORMAL) Protime-INR (2024) INR 3.20(A) 0.90 - 1.10 EXTERNAL LAB Blood Historical Provider LAB BLOOD ORDERABLES Kaya l Result EXTERNAL LAB from Last [address] [facility] MEDICARE [facility] Care Teams Aviation Mechanic Relationship Specialty Start Date End Date Raúl Palacio MD [address] [facility] [address] [place] [address] PCP - General Family Medicine 09/22/18
--- OUTSIDE RECORDS SUMMARY | 2024-11-12 10:15 | XMS_ITS | Referral Summary ---
Author Organization [address] [facility] [address] [place] [address] Care Team Providers Care Assistant Infant Teacher Name Role Phone Raúl Palacio MD Primary Care Provider Encounters Date Type Department Care Team Description 09/30/2024 Anticoagulation Visit [facility] Cardiology [address] [place] [address] [address] [place] [address] Boone Stinson RN Atrial fibrillation, unspecified type (HCC) (Primary Dx) 09/01/2024 Anticoagulation Visit [facility] Cardiology [address] [place] [address] [address] [place] [address] Domenica Parra RN Atrial fibrillation, unspecified type (HCC) (Primary Dx) 09/01/2024 Telephone [facility] Cardiology [address] [place] [address] [address] [place] [address] Boone Hooper MD from Last 3 Months Allergies No known active allergies Medications atorvastatin [...] right vertebral artery 12/02/2018 Atrial fibrillation 11/14/2018 Social History Tobacco Use Types Packs/Day Years [...] on file Sexual Orientation Not on file Last Filed Vital Signs Vital Sign Reading [...] 11/11/2023 11:27 AM CDT Plan of Treatment Not on file Procedures Procedure Name Priority Date/Time Associated Diagnosis Comments PROTIME-INR Routine 09/30/2024 PROTIME-INR Routine 2024 from Last 3 Months Results * (ABNORMAL) Protime-INR (09/30/2024) INR 2.90(A) 0.90 - 1.10 EXTERNAL LAB Blood 09/30/2024 Historical Provider MD LAB BLOOD ORDERABLES Kaya l Result EXTERNAL LAB * (ABNORMAL) Protime-INR (2024) INR 3.20(A) 0.90 - 1.10 EXTERNAL LAB Blood [facility] Provider MD LAB BLOOD ORDERABLES Kaya l Result Performing Organization Address City/[facility] Co de Phone Number EXTERNAL LAB from Last 3 Months Insurance MEDICARE [facility] MEDICARE [facility] Care Teams Assistant Infant Teacher Relationship Specialty Start Date End Date Raúl Palacio MD [address] [facility] [address] [place] [address] PCP - General Family Medicine 09/22/18
--- OUTSIDE RECORDS SUMMARY | 2024-11-12 10:15 | XMS_ITS | Clinical Summary ---
Author Organization [facility] Address [address] [place] [address] Care Team Providers Care [employer] Principal Name Role Phone Raúl Palacio MD Primary Care Provider [phone] Source Comments [facility],non-owned Affiliates and Associated Physician Practices is amultiple site organization consisting of ambulatory clinics and hospital sitesin [place], [place], [place] and [place]. This disclosure is being madepursuant to the Care Everywhere program and may not contain all information available regarding this patient. Last updated 18.[facility] Allergies No known active allergies Medications * Be aware that medications may not be up to date on this document. Alwaysverify current medications with the patient. warfarin (COUMADIN) 5 MG tablet Take 1 tablet by mouth once daily 90 tablet 4 9 Active atorvastatin (LIPITOR) 80 MG tablet 0.5 tablets by Enteral Tube route at bedtime 90 tablet 4 9 Active lisinopril (PRINIVIL; ZESTRIL) 40 MG tablet 1 tablet by Enteral Tube route once daily 90 tablet 4 9 Active metoprolol tartrate (LOPRESSOR) 25 MG tablet 1 tablet by Enteral Tube route Every 6 Hours (03,09,15,21) 270 tablet 3 9 Active amLODIPine (NORVASC) 10 MG tablet 1 tablet by Enteral Tube route once daily 90 tablet 4 04/28/201 9 Active Additional Information Patient not taking.Reported on 12/09/2018 Active Problems Problem Noted Date Diagnosed Date Cerebrovascular accident (CV A) due to occlusion of vertebral artery 10/08/2018 Social History Tobacco Use Types Packs/Day Years Used Date Smoking Tobacco: Never Smokeless Tobacco: Never Alcohol Use Standard Drinks/Week Comments No 0 (1 standard drink = 0.6 oz pur e alcohol) Comments No Sex and Gender Information Value Date Recorded Sex Assigned at Not on file Legal Sex Female 4:24 PM CDT Gender Identity Not on file Sexual Orientation Not on file Last Filed Vital Signs Vital Sign Reading Time Taken Comments Blood Pressure 146/76 12/09/2018 10:17 AM CDT Pulse 65 12/09/2018 10:17 AM CDT Temperature 37.1 C (98.7 F) 12/09/2018 9:40 AM CDT Respiratory Rate 16 12/09/2018 10:17 AM CDT Oxygen Saturation 100% 12/09/2018 10:17 AM CDT Inhaled Oxygen Concentration 35% 10/14/2018 1 2:37 PM CDT Weight 49.9 kg (110 lb) 12/09/2018 9:40 AM CDT Height 160 cm (5' 3 ) 12/09/2018 9:40 AM CDT Body Mass Index 19.49 12/09/2018 9:40 AM CDT Plan of Treatment Health Maintenance Due Date Last Done Comments BONE DENSITY TESTING 1945 DTAP/TDAP/TD VACCINES (1 - Tdap) 09/01/1963 PNEUMOCOCCAL VACCINE 50+ (1 of 1 - PCV) 1994 ZOSTER VACCINE (1 of 2) 1994 Respiratory Syncytial Virus (RSV) Vaccine Pt: or over 60 yrs (1 - 1-dose 75+ series) 09/01/2019 COVID-19 VACCINE ( - 2023-2 5 season) 2024 DEPRESSION SCREENING 06/24/2024 INFLUENZA VACCINE (Season Ended) 2025 HEPATITIS B VACCINE Aged Out No longe r eligible based on patient's age to complete this topic HIB VACCINE Aged Out No longer eligi ble based on patient's age to complete this topic HPV VACCINE Aged Out No longer eligi ble based on patient's age to complete this topic MENINGOCOCCAL (Group B) VACC INE SHARED DECISION-MAKING Aged Out No longer eligibl e based on patient's age to complete this topic MENINGOCOCCAL GROUPS A/C/Y/W VACCINE Aged Out No longer eligible b ased on patient's age to complete this topic Insurance MEDICARE [facility] MEDICARE [facility] Advance Directives * Full Code (Latest Code Status on File) Date Activated Date Inactivated Comments 10/08/2018 4:34 PM 10/18/2018 5:39 PM Care Teams [employer] Principal Relationship Specialty Start Date End Date Raúl Palacio MD [address] [place] [id number] PCP - General Family Medicine 12/09/18
[2024-11-12 10:56] LABS: Hematocrit 40.3 % (37.0-47.0); Hemoglobin 12.6 g/dL (12.0-15.0); Mean Corpuscular HGB Conc 31.3 g/dl (32-36); Mean Corpuscular Hemoglobin 29.9 pg (26-34); Mean Corpuscular Volume 95.7 fl (80-100); Mean Platelet Volume 10.3 fl (7.4-10.4); Platelet Count Result 289 k/mm3 (150-375); Red Blood Count 4.21 M/mm3 (4.2-5.4); Red Cell Distribution Width 14.2 % (11.5-14.5); White Blood Count 6.7 K/mm3 (4.5-10.0)
[2024-11-12 11:05] LABS: Add Urine Microscopic? YES; Appearance Urine Clear (Clear); Bacteria Urine None Seen /hpf; Bilirubin Urine Negative (Negative); Blood Urine Negative (Negative); Color Urine Yellow (Yellow); Glucose Urine UA Negative (Negative); Ketones Urine Negative (Negative); Leukocyte Esterase Ur Negative LEU/UL (Negative); Nitrate Urine Negative (Negative); Non Pathogenic Casts 0-2; Protein Urine Trace mg/dL (Negative); RBC Urine 0-2 /hpf (0-2); Specific Grav Ur 1.005 (1.001-1.035); Squamous Epithelial Cell Urine None Seen /hpf (Few); Urobilinogen Urine 0.2 mg/dL (<2.0); WBC Urine 0-5 /hpf (0-3); pH Urine 7.5 (5.0-9.0)
[2024-11-12 12:31] LABS: Alanine Aminotransferase 21 U/L (6-35); Albumin Level 4.1 g/dL (3.5-5.1); Alkaline Phosphatase 107 U/L (38-126); Anion Gap 8 mmol/L (4-12); Aspartate Amino Transferase 31 U/L (14-36); Bilirubin,Total 1.1 mg/dL (0.2-1.3); Blood Urea Nitrogen 13 mg/dL (7-17); Calcium 9.2 mg/dL (8.4-10.2); Carbon Dioxide 24 mmol/L (22-30); Chloride 111 mmol/L (98-107); Cholesterol 129 mg/dL (0-200); Estimated Glomerular Filt Rate 57; Glucose 96 mg/dL (65-110); HDL Direct 43 mg/dL; Potassium 4.5 mmol/L (3.4-5.0); Sodium 143 mmol/L (137-145); Triglycerides 135 mg/dL (<150)
[2024-11-12 12:44] LABS: LDL Cholesterol Direct 44 mg/dL
== END 2024-11-12 10:06 | disposition home or self-care (01) ==
PROVIDERS: PCP Family Medicine; Visit Provider Physician Assistant
DX: E78.5 Hyperlipidemia, unspecified (principal); I10 Essential (primary) hypertension; I69.30 Unspecified sequelae of cerebral infarction; I48.20 Chronic atrial fibrillation, unspecified; Z79.01 Long term (current) use of anticoagulants
CPT/HCPCS: 36415; 80053; 80061; 81001; 84443; 85027

== ENCOUNTER 2024-11-12 10:11 | Outpatient (RCR) | payer MEDICARE, SELFPAY ==
[2024-08-31 10:37] LABS: INR 3.2; Prothrombin Time 33.3 Seconds (11.1-14.7)
[2024-09-30 11:35] LABS: INR 2.9; Prothrombin Time 31.3 Seconds (11.1-14.7)
[2024-11-12 11:12] LABS: Prothrombin Time 31.7 Seconds (11.1-14.7)
== END 2024-11-29 23:59 | disposition home or self-care (01) ==
LOC: ANHLAB 10:11
PROVIDERS: PCP Family Medicine; Visit Provider Internal Medicine Cardiovascular Disease
DX: Z51.81 Encounter for therapeutic drug level monitoring (principal); Z79.01 Long term (current) use of anticoagulants
CPT/HCPCS: 36415; 80053; 80061; 81001; 84443; 85027; 85610

== ENCOUNTER 2025-01-06 10:51 | Outpatient (RCR) | payer MEDICARE, SELFPAY ==
[2024-12-08 11:30] LABS: INR 2.9; Prothrombin Time 29.7 Seconds (11.1-14.7)
[2025-01-06 11:23] LABS: INR 3.4; Prothrombin Time 33.4 Seconds (11.1-14.7)
== END 2025-02-05 10:51 | disposition home or self-care (01) ==
LOC: ANHLAB 10:51
PROVIDERS: PCP Family Medicine; Visit Provider Internal Medicine Cardiovascular Disease
DX: Z51.81 Encounter for therapeutic drug level monitoring (principal); Z79.01 Long term (current) use of anticoagulants
CPT/HCPCS: 36415; 85610

== ENCOUNTER 2025-04-20 10:08 | Outpatient (RCR) | payer MEDICARE, SELFPAY ==
[2025-02-05 11:48] LABS: INR 2.9; Prothrombin Time 29.8 Seconds (11.1-14.7)
[2025-03-03 12:00] LABS: INR 3.3; Prothrombin Time 32.4 Seconds (11.1-14.7)
[2025-03-29 12:29] LABS: INR 3.6; Prothrombin Time 34.9 Seconds (11.1-14.7)
[2025-04-20 11:32] LABS: INR 2.9; Prothrombin Time 29.5 Seconds (11.1-14.7)
== END 2025-05-06 23:59 | disposition home or self-care (01) ==
LOC: ANHLAB 10:08
PROVIDERS: PCP Family Medicine; Visit Provider Internal Medicine Cardiovascular Disease
DX: Z51.81 Encounter for therapeutic drug level monitoring (principal); I48.91 Unspecified atrial fibrillation; Z79.01 Long term (current) use of anticoagulants
CPT/HCPCS: 36415; 85610